=== PATIENT | male | born 1960 | race African-American/Black ===

== ENCOUNTER 2021-04-25 21:03 | Emergency (ER) | payer BC ==
[~2021-04-25] VITALS: Ht 177.8 cm; Wt 89.5 kg
[2021-04-25 21:06] VITALS: BP 146/92
[2021-04-25 21:51] LABS: BASOPHILS % (AUTO) 0.4 % (0-1); EOSINOPHILS # (AUTO) 0.1 X10'3 (0-0.9); EOSINOPHILS % (AUTO) 0.7 % (0-6); HEMATOCRIT 45.4 % (42.0-52.0); LYMPHOCYTES # (AUTO) 2.1 X10'3 (1.1-4.8); LYMPHOCYTES % (AUTO) 21.2 % (21-51); MEAN CORPUSCULAR HEMOGLOBIN 30.5 PG (27.0-31.0); MEAN CORPUSCULAR HGB CONC 33.1 g/dL (33.0-36.5); MEAN CORPUSCULAR VOLUME 92.2 FL (78-98); MEAN PLATELET VOLUME 9.5 FL (7.4-10.4); MONOCYTES # (AUTO) 0.8 X10'3 (0-0.9); NEUTROPHILS # (AUTO) 6.8 X10'3 (1.8-7.7); NEUTROPHILS % (AUTO) 69.7 % (42-75); PLATELET COUNT 275 X10'3 (140-440); RED BLOOD COUNT 4.92 X10'6 (4.70-6.10); RED CELL DISTRIBUTION WIDTH 14.5 % (11.5-14.5); WHITE BLOOD COUNT 9.8 X10'3 (4.5-11.0)
[2021-04-25 21:59] LABS: ALANINE AMINOTRANSFERASE 42 U/L (12-78); ALBUMIN 4.2 G/DL (3.4-5.0); ALBUMIN/GLOBULIN RATIO 1.1 (1.1-1.5); ALKALINE PHOSPHATASE 70 IU/L (46-116); ANION GAP 12 (8-16); ASPARTATE AMINO TRANSFERASE 30 U/L (10-37); BILIRUBIN,TOTAL 0.3 MG/DL (0.1-1.0); BLOOD UREA NITROGEN 20 MG/DL (7-18); BUN/CREATININE RATIO 10.1 (5.4-32.0); CALCIUM 9.1 MG/DL (8.5-10.1); CHLORIDE 102 MMOL/L (99-107); CREATININE 1.99 MG/DL (0.60-1.10); GLUCOSE 192 MG/DL (70-104); LIPASE 200 U/L (73-393); POTASSIUM 4.5 MMOL/L (3.5-5.1); SODIUM 141 MMOL/L (135-145); TOTAL PROTEIN 8.1 G/DL (6.4-8.2); eGFR 34 ML/MIN
[2021-04-25 22:41] LABS: CLARITY,URINE SLIGHTLY CLOUDY (Clear); COLOR,URINE YELLOW (Yellow); GLUCOSE, URINE NEGATIVE (Neg); KETONES,URINE NEGATIVE (Neg); LEUKOCYTE ESTERASE ,URINE NEGATIVE (Neg); NITRITES, URINE NEGATIVE (Neg); OCCULT BLOOD,URINE MODERATE (Neg); PROTEIN,URINE 30 mg/dl (Neg); UROBILINOGEN,URINE 0.2 E.U/dL (0.2-1.0)
[2021-04-25 22:50] LABS: UA COLLECTION TYPE FOLEY CATH
[2021-04-25 22:51] LABS: BACTERIA,URINE FEW /HPF (Neg); HYALINE CASTS 0-3 /LPF (NEGATIVE); SQUAMOUS EPITHELIAL CELL,UR NONE SEEN /LPF (FEW); WBC,URINE 0-4 /HPF (0-4)
== END 2021-04-25 22:49 | disposition home or self-care (01) ==
LOC: ER 21:03
DX: R33.9 Retention of urine, unspecified (principal); N40.0 Benign prostatic hyperplasia without lower urinary tract symptoms; I10 Essential (primary) hypertension; E11.9 Type 2 diabetes mellitus without complications
CPT/HCPCS: 36415; 51702; 80053; 81001; 83690; 85025; 99284

== ENCOUNTER 2021-04-29 04:40 | Emergency (ER) | payer BC ==
[~2021-04-29] VITALS: Ht 177.8 cm; Wt 90.0 kg
[2021-04-29 04:42] VITALS: BP 148/90
[2021-04-29] MEDS ORDERED: LIDOcaine 2% 10ml TOPICAL JELLY (Urojet) MM ONE (05:05)
[2021-04-29] MEDS ORDERED: FLO0.4C PO ×2 (05:38→23:27)
[2021-04-29] MEDS ORDERED: tamsulosin 0.4mg capsule PO ONE (05:56)
[2021-04-29] MEDS ORDERED: SULF1TAB49 PO (23:31)
[2021-04-29] MEDS ORDERED: SIMV-42 PO (23:31)
[2021-04-29] MEDS ORDERED: OXYB5TAB16 PO (23:31)
[2021-04-29] MEDS ORDERED: METF-950 PO (23:32)
[2021-04-29] MEDS ORDERED: METF-438 PO (23:32)
[2021-04-29] MEDS ORDERED: LANS30CA56 PO (23:50)
[2021-04-29] MEDS ORDERED: SILD100T70 PO (23:50)
[2021-04-29] MEDS ORDERED: ATEN100T PO (23:50)
[2021-04-29] MEDS ORDERED: LISI20TA28 PO (23:50)
[2021-04-29] MEDS ORDERED: TRIA1TAB3 PO (23:50)
[2021-04-29] MEDS ORDERED: GLIM2TAB6 PO (23:50)
== END 2021-04-29 06:02 | disposition home or self-care (01) ==
LOC: ER 04:40
DX: T83.091A Other mechanical complication of indwelling urethral catheter, initial encounter (principal); I10 Essential (primary) hypertension; E11.9 Type 2 diabetes mellitus without complications
CPT/HCPCS: 51702; 99284

== ENCOUNTER 2021-04-29 18:01 | Inpatient (IN) | payer BC ==
[~2021-04-29] VITALS: Ht 177.8 cm; Wt 90.0 kg
[~2021-04-29 18:01] MED LIST: FLO0.4C PO
[2021-04-29] MEDS ORDERED: LIDOcaine 2% 10ml TOPICAL JELLY (Urojet) TP ONE (19:20)
[2021-04-29] MEDS ORDERED: normal saline 1000ML IV soln IVB ONE (20:15)
[2021-04-29] MEDS ORDERED: temazepam 15mg capsule PO PRN (21:00)
[2021-04-29] MEDS ORDERED: morphine 4 MG/ML inj SYRINge IV ONE (22:05)
[2021-04-29] MEDS ORDERED: ondansetron/PF 4mg/2ml inj IV ONE (22:05)
[2021-04-29 22:27] LABS: BASOPHILS % (AUTO) 0.5 % (0-1); EOSINOPHILS % (AUTO) 0.7 % (0-6); HEMATOCRIT 39.6 % (42.0-52.0); HEMOGLOBIN 13.4 g/dl (14.0-17.9); LYMPHOCYTES # (AUTO) 1.2 X10'3 (1.1-4.8); LYMPHOCYTES % (AUTO) 20.3 % (21-51); MEAN CORPUSCULAR HEMOGLOBIN 30.7 PG (27.0-31.0); MEAN CORPUSCULAR VOLUME 90.4 FL (78-98); MEAN PLATELET VOLUME 9.5 FL (7.4-10.4); MONOCYTES # (AUTO) 0.9 X10'3 (0-0.9); NEUTROPHILS # (AUTO) 3.7 X10'3 (1.8-7.7); NEUTROPHILS % (AUTO) 62.5 % (42-75); PLATELET COUNT 212 X10'3 (140-440); RED BLOOD COUNT 4.38 X10'6 (4.70-6.10); RED CELL DISTRIBUTION WIDTH 14.4 % (11.5-14.5); WHITE BLOOD COUNT 5.8 X10'3 (4.5-11.0)
--- NOTE | 2021-04-29 22:27 | NUR ---
Bladder scan post first liter of normal saline showed around 15ml.
[2021-04-29 22:39] LABS: ALANINE AMINOTRANSFERASE 35 U/L (12-78); ALBUMIN 3.6 G/DL (3.4-5.0); ALKALINE PHOSPHATASE 77 IU/L (46-116); ANION GAP 11 (8-16); ASPARTATE AMINO TRANSFERASE 29 U/L (10-37); BILIRUBIN,TOTAL 0.4 MG/DL (0.1-1.0); BLOOD UREA NITROGEN 49 MG/DL (7-18); BUN/CREATININE RATIO 11.3 (5.4-32.0); CALCIUM 9.2 MG/DL (8.5-10.1); CHLORIDE 98 MMOL/L (99-107); CREATININE 4.35 MG/DL (0.60-1.10); GLUCOSE 53 MG/DL (70-104); SODIUM 134 MMOL/L (135-145); TOTAL PROTEIN 7.1 G/DL (6.4-8.2); eGFR 17 ML/MIN
[2021-04-29] MEDS ORDERED: normal saline 1000ml 1,000 ML IV ONE (22:50)
[2021-04-29] MEDS ORDERED: ringers solution, lactated 1000ml IV soln IV ONE (23:20)
[2021-04-29] MEDS ORDERED: FLO0.4C PO (23:27)
[2021-04-29] MEDS ORDERED: SIMV-42 PO (23:31)
[2021-04-29] MEDS ORDERED: OXYB5TAB16 PO (23:31)
[2021-04-29] MEDS ORDERED: SULF1TAB49 PO (23:31)
[2021-04-29] MEDS ORDERED: METF-438 PO (23:32)
[2021-04-29] MEDS ORDERED: METF-950 PO (23:32)
[2021-04-29] MEDS ORDERED: bisacodyl 10mg suppository rectal RC PRN (23:45)
[2021-04-29] MEDS ORDERED: ondansetron/PF 4mg/2ml inj IV PRN (23:45)
[2021-04-29] MEDS ORDERED: acetaminophen 650mg rectal suppository RC PRN (23:45)
[2021-04-29] MEDS ORDERED: magnesium hydroxide 30ml (MOM) UD suspension PO PRN (23:45)
[2021-04-29] MEDS ORDERED: diphenhydrAMINE 50 mg/ml inj IV PRN (23:45)
[2021-04-29] MEDS ORDERED: ondansetron 4mg rapidly disintigrating tab PO PRN (23:45)
[2021-04-29] MEDS ORDERED: acetaminophen 325mg tablet PO PRN ×2 (23:45)
[2021-04-29] MEDS ORDERED: mag hydrox/Alum hydrox/simeth 30ml oral suspension PO PRN (23:45)
[2021-04-29] MEDS ORDERED: diphenhydrAMINE 25mg capsule PO PRN (23:45)
[2021-04-29] MEDS ORDERED: LISI20TA28 PO (23:50)
[2021-04-29] MEDS ORDERED: GLIM2TAB6 PO (23:50)
[2021-04-29] MEDS ORDERED: SILD100T70 PO (23:50)
[2021-04-29] MEDS ORDERED: ATEN100T PO (23:50)
[2021-04-29] MEDS ORDERED: glucagon, human recombinant 1mg kit SUBCUT PRN (23:50)
[2021-04-29] MEDS ORDERED: TRIA1TAB3 PO (23:50)
[2021-04-29] MEDS ORDERED: dextrose ORAL solution 15 GM/59 ML bottle PO PRN ×2 (23:50)
[2021-04-29] MEDS ORDERED: MESSAGE TO PHARMACY PO ONE (23:50)
[2021-04-29] MEDS ORDERED: dextrose 50%-water 50ml dispensing syringe IV PRN ×2 (23:50)
[2021-04-29] MEDS ORDERED: insulin Lispro (HumaLOG) vial - multi-dose SQ SCH (23:50)
[2021-04-29] MEDS ORDERED: LANS30CA56 PO (23:50)
[2021-04-30 00:11] LABS: MAGNESIUM 2.1 MG/DL (1.5-2.4); PHOSPHORUS 6.2 MG/DL (2.3-4.5)
[2021-04-30 00:53] LABS: CREATINE KINASE 96 U/L (39-308); LIPASE 194 U/L (73-393)
[2021-04-30 00:56] LABS: HEMOGLOBIN A1C 6.5 % (4.5-6.2)
[2021-04-30] MEDS: dextrose 5%-1/2 normal saline 1,000 ML IV SCH ×2 (01:55→09:51)
[2021-04-30 03:30] LABS: COLOR,URINE YELLOW (Yellow); GLUCOSE, URINE NEGATIVE (Neg); KETONES,URINE NEGATIVE (Neg); LEUKOCYTE ESTERASE ,URINE SMALL (Neg); NITRITES, URINE NEGATIVE (Neg); OCCULT BLOOD,URINE LARGE (Neg); PROTEIN,URINE TRACE mg/dl (Neg); UROBILINOGEN,URINE 0.2 E.U/dL (0.2-1.0)
[2021-04-30 03:34] LABS: BASOPHILS % (AUTO) 0.5 % (0-1); EOSINOPHILS % (AUTO) 0.7 % (0-6); HEMATOCRIT 35.3 % (42.0-52.0); HEMOGLOBIN 11.7 g/dl (14.0-17.9); LYMPHOCYTES % (AUTO) 23.5 % (21-51); MEAN CORPUSCULAR HEMOGLOBIN 30.9 PG (27.0-31.0); MEAN CORPUSCULAR HGB CONC 33.3 g/dL (33.0-36.5); MEAN CORPUSCULAR VOLUME 92.7 FL (78-98); MEAN PLATELET VOLUME 9.4 FL (7.4-10.4); MONOCYTES # (AUTO) 0.5 X10'3 (0-0.9); MONOCYTES % (AUTO) 12.5 % (2-12); NEUTROPHILS # (AUTO) 2.7 X10'3 (1.8-7.7); NEUTROPHILS % (AUTO) 62.8 % (42-75); PLATELET COUNT 147 X10'3 (140-440); RED CELL DISTRIBUTION WIDTH 14.4 % (11.5-14.5); WHITE BLOOD COUNT 4.2 X10'3 (4.5-11.0)
[2021-04-30 03:41] LABS: PARTIAL THROMBOPLASTIN TIME 27 SECONDS (22-32)
[2021-04-30 03:43] LABS: CLARITY,URINE SLIGHTLY CLOUDY (Clear); UA COLLECTION TYPE URINAL
[2021-04-30 03:44] LABS: BACTERIA,URINE FEW /HPF (Neg); RBC,URINE 20-50 /HPF (0-2); SQUAMOUS EPITHELIAL CELL,UR FEW /LPF (FEW); WBC,URINE 0-4 /HPF (0-4)
[2021-04-30 03:49] LABS: ALANINE AMINOTRANSFERASE 28 U/L (12-78); ALBUMIN 2.8 G/DL (3.4-5.0); ALKALINE PHOSPHATASE 62 IU/L (46-116); ANION GAP 9 (8-16); ASPARTATE AMINO TRANSFERASE 26 U/L (10-37); BILIRUBIN,TOTAL 0.2 MG/DL (0.1-1.0); BLOOD UREA NITROGEN 43 MG/DL (7-18); BUN/CREATININE RATIO 11.9 (5.4-32.0); CALCIUM 7.2 MG/DL (8.5-10.1); CHLORIDE 103 MMOL/L (99-107); CREATININE 3.62 MG/DL (0.60-1.10); GLUCOSE 128 MG/DL (70-104); POTASSIUM 3.4 MMOL/L (3.5-5.1); SODIUM 137 MMOL/L (135-145); TOTAL CARBON DIOXIDE 24.6 MMOL/L (24-32); TOTAL PROTEIN 5.6 G/DL (6.4-8.2); eGFR 21 ML/MIN
[2021-04-30 03:53] LABS: URINE AMPHETAMINE SCREEN NEGATIVE (Neg); URINE BARBITUATE SCREEN NEGATIVE (Neg); URINE BENZODIAZEPINES SCREEN NEGATIVE (Neg); URINE CANNABINOID SCREEN NEGATIVE (Neg); URINE COCAINE SCREEN NEGATIVE (Neg); URINE METHADONE SCREEN NEGATIVE (Neg); URINE OPIATE SCREEN POSITIVE (Neg); URINE PHENCYCLIDINE SCREEN NEGATIVE (Neg)
[2021-04-30 03:53] LABS: CHOL/HDL RATIO 3.4 (0.00-4.99); CHOLESTEROL 86 MG/DL (0-200); HDL CHOLESTEROL 25 MG/DL (35-60); LDL CHOLESTEROL 44 MG/DL (50-100); TRIGLYCERIDES 100 MG/DL (20-135)
--- NOTE | 2021-04-30 07:46 | NUR ---
REPORT GIVEN TO CHINO ONOFRE
[2021-04-30] MEDS: tamsulosin 0.4mg capsule PO SCH (09:23)
[2021-04-30] MEDS: oxybutynin 5mg tablet PO SCH ×2 (09:24→20:02)
[2021-04-30] MEDS: docusate sod 100mg capsule PO SCH ×2 (09:24→20:01)
[2021-04-30] MEDS: lansoprazole 15mg solutab PO SCH (09:25)
[2021-04-30] MEDS: heparin, porcine 5000 units/ml vial SQ SCH ×3 (09:27→20:09)
[2021-04-30] MEDS: morphine 2 MG/ML inj. syringe IV PRN ×2 (09:51→14:08)
[2021-04-30] MEDS: HYDROcodone/acetaminophen 5mg/325mg tablet PO PRN ×3 (10:34→22:37)
[2021-04-30 12:14] VITALS: BP 127/76
[2021-04-30] MEDS: normal saline 1000ml 1,000 ML IV SCH ×2 (14:12→23:13)
[2021-04-30 18:00] VITALS: BP 116/55
--- NOTE | 2021-04-30 18:26 | NUR ---
Problems reprioritized. Patient report given, questions answered & plan of care reviewed with Rosalia MAGANA.
--- NOTE | 2021-04-30 19:07 | NUR ---
Report received from Jewell MAGANA Patient awake, pleasant, eating CC diet. no C/o pain, encouraged to call for assistance if needed
[2021-04-30 23:29] VITALS: BP 113/58
[2021-05-01 06:46] LABS: BASOPHILS % (AUTO) 0.5 % (0-1); EOSINOPHILS # (AUTO) 0.1 X10'3 (0-0.9); EOSINOPHILS % (AUTO) 3.2 % (0-6); HEMATOCRIT 34.7 % (42.0-52.0); HEMOGLOBIN 11.7 g/dl (14.0-17.9); LYMPHOCYTES # (AUTO) 1.5 X10'3 (1.1-4.8); LYMPHOCYTES % (AUTO) 43.9 % (21-51); MEAN CORPUSCULAR HEMOGLOBIN 30.6 PG (27.0-31.0); MEAN CORPUSCULAR HGB CONC 33.7 g/dL (33.0-36.5); MEAN CORPUSCULAR VOLUME 90.9 FL (78-98); MEAN PLATELET VOLUME 9.1 FL (7.4-10.4); MONOCYTES # (AUTO) 0.4 X10'3 (0-0.9); MONOCYTES % (AUTO) 11.4 % (2-12); NEUTROPHILS # (AUTO) 1.4 X10'3 (1.8-7.7); PLATELET COUNT 171 X10'3 (140-440); RED BLOOD COUNT 3.82 X10'6 (4.70-6.10); RED CELL DISTRIBUTION WIDTH 14.4 % (11.5-14.5); WHITE BLOOD COUNT 3.5 X10'3 (4.5-11.0)
[2021-05-01] MEDS: normal saline 1000ml 1,000 ML IV SCH ×2 (07:10→09:56)
[2021-05-01 07:14] LABS: ALANINE AMINOTRANSFERASE 33 U/L (12-78); ALBUMIN 2.7 G/DL (3.4-5.0); ALBUMIN/GLOBULIN RATIO 0.9 (1.1-1.5); ALKALINE PHOSPHATASE 70 IU/L (46-116); ANION GAP 9 (8-16); ASPARTATE AMINO TRANSFERASE 26 U/L (10-37); BILIRUBIN,TOTAL 0.2 MG/DL (0.1-1.0); BLOOD UREA NITROGEN 27 MG/DL (7-18); BUN/CREATININE RATIO 14.8 (5.4-32.0); CHLORIDE 108 MMOL/L (99-107); CREATININE 1.83 MG/DL (0.60-1.10); GLUCOSE 101 MG/DL (70-104); POTASSIUM 4.3 MMOL/L (3.5-5.1); SODIUM 143 MMOL/L (135-145); TOTAL CARBON DIOXIDE 26.1 MMOL/L (24-32); TOTAL PROTEIN 5.7 G/DL (6.4-8.2); eGFR 46 ML/MIN
[2021-05-01 07:40] VITALS: BP 121/71
[2021-05-01] MEDS: oxybutynin 5mg tablet PO SCH (07:41)
[2021-05-01] MEDS: heparin, porcine 5000 units/ml vial SQ SCH (07:42)
[2021-05-01] MEDS: docusate sod 100mg capsule PO SCH (07:42)
[2021-05-01] MEDS: tamsulosin 0.4mg capsule PO SCH (07:42)
[2021-05-01] MEDS: lansoprazole 15mg solutab PO SCH (07:42)
[2021-05-01] MEDS: HYDROcodone/acetaminophen 5mg/325mg tablet PO PRN ×2 (07:44→15:48)
--- NOTE | 2021-05-01 09:00 | NUR ---
Spoke with Dr. Cole regarding discharge. Orders are in for this patient, he said that he is going to consult with case management regarding urology follow up and the patients cannot get him until later today so the patient will not be discharged at this time until his comes.
--- NOTE | 2021-05-01 11:33 | NUR ---
load out worker paged CM. She called back and said she is aware of the urology consult and will notify her when she has an appointment.
[2021-05-01 12:00] VITALS: BP 127/72
--- NOTE | 2021-05-01 13:35 | NUR ---
Report given to Ashlie Georges RN that will be taking over patient care.
--- NOTE | 2021-05-01 13:40 | NUR ---
Patient in room [facility]. I have received report from CHINO Angelo and had the opportunity to ask questions and assume patient care.
[2021-05-01] MEDS ORDERED: HYDR-3965 PO (17:11)
== END 2021-05-01 16:30 | disposition home health service (06) | DRG 699 ==
LOC: ER 18:02 → ED HOLD 23:46 → SUR 3N 04-30 07:50
PROVIDERS: ADMIT Family Medicine; ATTEND Internal Medicine
DX: T83.091A Other mechanical complication of indwelling urethral catheter, initial encounter (principal); E87.1 Hypo-osmolality and hyponatremia; N17.9 Acute kidney failure, unspecified; E11.22 Type 2 diabetes mellitus with diabetic chronic kidney disease; E83.39 Other disorders of phosphorus metabolism; E86.1 Hypovolemia; N18.30 Chronic kidney disease, stage 3 unspecified; I12.9 Hypertensive chronic kidney disease with stage 1 through stage 4 chronic kidney disease, or unspecified chronic kidney disease; K57.90 Diverticulosis of intestine, part unspecified, without perforation or abscess without bleeding; T36.8X5A Adverse effect of other systemic antibiotics, initial encounter; N32.0 Bladder-neck obstruction; N40.1 Benign prostatic hyperplasia with lower urinary tract symptoms; R33.8 Other retention of urine; Y73.8 Miscellaneous gastroenterology and urology devices associated with adverse incidents, not elsewhere classified; Z79.899 Other long term (current) drug therapy; Y92.89 Other specified places as the place of occurrence of the external cause; Z79.84 Long term (current) use of oral hypoglycemic drugs
CPT/HCPCS: 36415; 71045; 74176; 80053; 80061; 80305; 81001; 82550; 82948; 83036; 83690; 83735; 83880; 83970; 84100; 84443; 85025; 85610; 85730; 87081; 87088; 96360; 96361; 96374; 96375; 99285; G0378; J1644; J1815; J2270; J2405; J7030; J7120